=== PATIENT | male | born 1995 | race African-American/Black ===

== ENCOUNTER 2018-12-26 16:53 | Emergency (ER) | payer BC ==
[~2018-12-26] VITALS: Ht 182.9 cm; Wt 116.1 kg
[2018-12-26 16:54] VITALS: BP 131/60
== END 2018-12-26 18:09 | disposition home or self-care (01) ==
LOC: ER 16:53
DX: M70.872 Other soft tissue disorders related to use, overuse and pressure, left ankle and foot (principal); F17.210 Nicotine dependence, cigarettes, uncomplicated; Y93.89 Activity, other specified

== ENCOUNTER 2019-04-01 13:53 | Emergency (ER) | payer OTHER ==
[~2019-04-01] VITALS: Ht 182.9 cm; Wt 106.1 kg
[2019-04-01] MEDS ORDERED: IBUPROFEN 800800 M1 PO (16:18)
[2019-04-01] MEDS ORDERED: ULTRAM 50MG TAB50 MG PO (16:18)
[2019-04-01] MEDS ORDERED: TAMIFLU75 MG PO (16:18)
[2019-04-01 16:43] VITALS: BP 124/76
== END 2019-04-01 16:45 | disposition home or self-care (01) ==
LOC: ER 13:53
DX: B34.9 Viral infection, unspecified (principal); F17.210 Nicotine dependence, cigarettes, uncomplicated

== ENCOUNTER 2020-09-12 10:42 | Emergency (ER) | payer OTHER ==
[~2020-09-12] VITALS: Ht 182.9 cm; Wt 102.1 kg
[~2020-09-12 10:42] MED LIST: IBUPROFEN 800800 M1 PO; TAMIFLU75 MG PO; ULTRAM 50MG TAB50 MG PO
[2020-09-12 10:47] VITALS: BP 128/86
== END 2020-09-12 12:15 | disposition home or self-care (01) ==
LOC: ER 10:42
DX: U07.1 COVID-19 (principal); F17.210 Nicotine dependence, cigarettes, uncomplicated; Z98.890 Other specified postprocedural states; Z79.1 Long term (current) use of non-steroidal anti-inflammatories (NSAID); Z79.891 Long term (current) use of opiate analgesic

== ENCOUNTER 2020-09-27 12:18 | Emergency (ER) | payer OTHER | END 2020-09-27 12:56 | disposition left against medical advice (07) | LOC: ER 12:18 | DX: Z53.21 Procedure and treatment not carried out due to patient leaving prior to being seen by health care provider (principal) ==